=== PATIENT | female | born 1980 | race Caucasian/White ===

== ENCOUNTER 2022-12-08 11:23 | Emergency (ER) | payer BC ==
[2022-12-08] MEDS ORDERED: ONDANSETRON *ODT* 4 MG TABLET SL ONE (11:48)
[2022-12-08] MEDS ORDERED: IBUPROFEN 600 MG TABLET (FP) PO ONE ×3 (11:48→12:26)
[2022-12-08 12:07] VITALS: RESP 18; TEMP 98.4; BMI 26.5
[2022-12-08] MEDS ORDERED: ONDANSETRON *ODT* 4 MG TABLET ONE (12:13)
[2022-12-08 13:16] LABS: EPITHELIAL CELLS MODERATE /hpf
[2022-12-08] MEDS ORDERED: CEPHALEXIN MONOHYDRATE 500 MG CAPSULE (UD) PO ONE (14:27)
[2022-12-08] MEDS ORDERED: CEPHALEXIN MONOHYDRATE 500 MG CAPSULE (UD) ONE (14:50)
[2022-12-08 15:45] VITALS: BP 126/94; PULSE 85
== END 2022-12-08 14:58 | disposition home or self-care (01) ==
LOC: FER 11:23
DX: N30.91 Cystitis, unspecified with hematuria (principal)
CPT/HCPCS: 76775-TC; 76856-TC; 81003; 81015; 84703; 87086; 99284-25; Q0162